=== PATIENT | female | born 1970 ===

== ENCOUNTER 2023-04-06 14:29 | Inpatient (IN) | payer OTHER ==
[~2023-04-06] VITALS: Ht 167.6 cm; Wt 100.7 kg
[2023-04-07] MEDS ORDERED: ENALAPRIL MALEA10 MG PO (13:53)
[2023-04-07] MEDS ORDERED: INDAPAMIDE2.5 MG PO (13:54)
[2023-04-07] MEDS ORDERED: ZANAFLEX2 M1 PO (13:54)
[2023-04-07] MEDS ORDERED: TOPROL XL25 M1 PO (13:54)
[2023-04-07] MEDS ORDERED: NABUMETONE500 MG PO (13:55)
[2023-04-07] MEDS ORDERED: HORIZANT600 MG PO (13:55)
[2023-04-07] MEDS ORDERED: SULFAZINE EC500 MG PO (13:55)
[2023-04-07] MEDS ORDERED: LORAZEPAM0.5 MG PO (13:56)
[2023-04-07] MEDS ORDERED: TEMAZEPAM15 MG PO (13:56)
[2023-04-07] MEDS ORDERED: BUPROPION HCL150 M1 PO (13:56)
[2023-04-07] MEDS ORDERED: ALLOPURINOL100 MG PO (13:57)
[2023-04-07] MEDS ORDERED: COLCHICINE0.6 MG PO (13:57)
[2023-04-12] MEDS ORDERED: ACETAMINOPHEN-1 EAC2 PO (12:27)
[2023-04-12] MEDS ORDERED: MEDROLPACK PO (12:27)
[2023-04-12] MEDS ORDERED: COLACE100 MG PO (12:28)
[2023-04-12] MEDS ORDERED: ZOFRAN8 MG PO (12:28)
[2023-04-12] MEDS ORDERED: AMOX-CLAV 875-1 EACH PO (12:28)
[2023-04-12] MEDS ORDERED: NEURONTIN800 MG PO (12:30)
== END 2023-04-14 11:09 | disposition home or self-care (01) | DRG 455 ==
LOC: O/R 04-12 05:55 → SURG 04-12 10:00 → EDBD 04-12 10:00 → SURG 04-12 14:30 → PED 04-12 18:26
PROVIDERS: ADMIT Orthopaedic Surgery Orthopaedic Surgery of the Spine; ATTEND Orthopaedic Surgery Orthopaedic Surgery of the Spine
PROC: 0SG0071 Fusion of Lumbar Vertebral Joint with Autologous Tissue Substitute, Posterior Approach, Posterior Column, Open Approach (ICD-10-PCS; 2023-04-12)
PROC: XRGD0R7 Fusion of Lumbosacral Joint using Custom-Made Anatomically Designed Interbody Fusion Device, Open Approach, New Technology Group 7 (ICD-10-PCS; 2023-04-12)
PROC: 0SG3071 Fusion of Lumbosacral Joint with Autologous Tissue Substitute, Posterior Approach, Posterior Column, Open Approach (ICD-10-PCS; 2023-04-12)
PROC: 0ST20ZZ Resection of Lumbar Vertebral Disc, Open Approach (ICD-10-PCS; 2023-04-12)
PROC: 0ST40ZZ Resection of Lumbosacral Disc, Open Approach (ICD-10-PCS; 2023-04-12)
PROC: 0QB30ZZ Excision of Left Pelvic Bone, Open Approach (ICD-10-PCS; 2023-04-12)
PROC: 07DR0ZZ Extraction of Iliac Bone Marrow, Open Approach (ICD-10-PCS; 2023-04-12)
PROC: XRGB0R7 Fusion of Lumbar Vertebral Joint using Custom-Made Anatomically Designed Interbody Fusion Device, Open Approach, New Technology Group 7 (ICD-10-PCS; principal; 2023-04-12 14:30)
DX: M43.16 Spondylolisthesis, lumbar region (principal); M43.17 Spondylolisthesis, lumbosacral region; M47.27 Other spondylosis with radiculopathy, lumbosacral region; M48.062 Spinal stenosis, lumbar region with neurogenic claudication; M48.07 Spinal stenosis, lumbosacral region; R26.9 Unspecified abnormalities of gait and mobility